=== PATIENT | female | born 1985 | race Caucasian/White ===

== ENCOUNTER → 2020-12-15 | Outpatient (CLI) ==
[~2020-12-15] MED LIST: ADV100INH INH; EFFE150C2 PO; EMGA120I IM; FAMO40TA3 PO; HYDR100C PO; LAMO100T3 PO; LAMO200T3 PO; LEVOTAB10 PO; METF-839 PO; MONT10TA10 PO; NEUR300C PO; PRAZ1CAP PO; PROAAER10 INH; QUET200T2 PO; SERO400T PO; TOPI25CA3 PO; TOPI50TA9 PO; ZOLP5TAB PO
== END ==
LOC: M LABSMTC 09:02 → EDUNIT# 09:35
PROVIDERS: ATTEND Anesthesiology
DX: Z01.812 Encounter for preprocedural laboratory examination (principal); Z20.822 Contact with and (suspected) exposure to COVID-19

== ENCOUNTER 2020-12-19 06:54 | Day surgery (SDC) | payer OTHER ==
[~2020-12-19] VITALS: Ht 167.6 cm; Wt 108.9 kg
[2020-12-19] MEDS ORDERED: MIDAZOLAM INJ 2MG/2ML VIAL (J2250 PER 1MG) As Ordered ONE (07:57)
[2020-12-19] MEDS ORDERED: fentaNYL 100 MCG/2 ML INJECTION (J3010) As Ordered ONE (07:58)
[2020-12-19] MEDS ORDERED: LIDOCAINE W/EPINEPHRINE 1% 20ML VIAL As Ordered ONE (08:20)
[2020-12-19] MEDS ORDERED: ROCURONIUM BROMIDE 50 MG/5 ML VIAL As Ordered ONE (08:21)
[2020-12-19] MEDS ORDERED: propofoL 200 MG/20 ML VIAL As Ordered ONE (08:21)
[2020-12-19] MEDS ORDERED: LIDOCAINE 2% 100MG/5ML SDV (FOR ANES.) As Ordered ONE (08:21)
[2020-12-19] MEDS ORDERED: BUPIVACAINE HCL 0.25% 30ML VIAL As Ordered ONE (08:49)
[2020-12-19] MEDS ORDERED: ONDANSETRON 4MG/2ML VIAL As Ordered ONE (08:51)
[2020-12-19] MEDS ORDERED: METOCLOPRAMIDE INJ 10MG/2ML VIAL (J2765 PER 1) As Ordered ONE (08:51)
[2020-12-19] MEDS ORDERED: SUGAMMADEX SODIUM 500 MG/5 ML VIAL (BRIDION) As Ordered ONE (08:54)
[2020-12-19] MEDS ORDERED: dexameTHASONE 4 MG/ML 1ML VIAL (J1100 PER 1MG) As Ordered ONE (08:55)
[2020-12-19] MEDS ORDERED: LR 1,000 ML IV SCH ×2 (09:30→09:35)
[2020-12-19] MEDS ORDERED: KETOROLAC 30 MG/ML 1ML VIAL IV PRN (09:30)
[2020-12-19] MEDS ORDERED: ONDANSETRON 4MG/2ML VIAL IV PRN (09:30)
[2020-12-19 14:00] VITALS: BP 139/86
--- NOTE | 2020-12-23 09:28 | RO ---
OPERATIVE NOTE DATE OF OPERATION: 12/19/2020 PREOPERATIVE DIAGNOSIS: Nonrestorable teeth. POSTOPERATIVE DIAGNOSIS: Nonrestorable teeth. PROCEDURE PERFORMED: Extraction of teeth #6, 11, 13, 14, 15, and 20. SURGEON: Prince oHod DMD. GANG SAW OPERATOR: ANESTHESIA: General. ESTIMATED BLOOD LOSS: 5 Ml. COMPLICATIONS: None. SPECIMEN: Teeth. DESCRIPTION OF PROCEDURE: The rest of the dictation will be completed in [facility].
== END 2020-12-19 14:13 | disposition home or self-care (01) ==
LOC: M SDC 06:54
PROVIDERS: ATTEND Dentist Oral and Maxillofacial Surgery
DX: K02.9 Dental caries, unspecified (principal); G43.909 Migraine, unspecified, not intractable, without status migrainosus; K21.9 Gastro-esophageal reflux disease without esophagitis; J45.909 Unspecified asthma, uncomplicated; F43.10 Post-traumatic stress disorder, unspecified; F31.9 Bipolar disorder, unspecified; F41.9 Anxiety disorder, unspecified; F32.9 Major depressive disorder, single episode, unspecified; G47.33 Obstructive sleep apnea (adult) (pediatric); Z79.84 Long term (current) use of oral hypoglycemic drugs; Z79.899 Other long term (current) drug therapy; Z87.891 Personal history of nicotine dependence; Z91.012 Allergy to eggs; Z88.2 Allergy status to sulfonamides; E73.9 Lactose intolerance, unspecified
CPT/HCPCS: 88300; D7210; D9223; J1100; J1885; J2250; J2405; J2765; J3010

== ENCOUNTER 2022-10-29 10:16 | Day surgery (SDC) | payer OTHER ==
[~2022-10-29] VITALS: Ht 167.6 cm; Wt 113.4 kg
[~2022-10-29 10:16] MED LIST changes: +ALBU6.7H6 INH; +ALPR0.25 PO; +DIVA250T67 PO; +FLUT50SP17; +GABA600T4 PO; +HYDR-4571 PO; +LAMO150T3 PO; -MONT10TA10 PO; +MONT10TA97 PO; +NALO4SPR; +OLAN1TAB16 PO; +PRAZ5CAP PO; +TOPI-254 PO; +TOPI100T9 PO; -TOPI25CA3 PO; +TOPI25CA5 PO; -TOPI50TA9 PO; +VENL37.598 PO; +ZOLP10TA2 PO
[2022-10-29] MEDS ORDERED: LIDOCAINE W/EPINEPHRINE 1% 20ML VIAL As Ordered ONE (13:11)
[2022-10-29] MEDS ORDERED: SUGAMMADEX SODIUM 500 MG/5 ML VIAL (BRIDION) As Ordered ONE ×2 (14:08→15:47)
[2022-10-29] MEDS ORDERED: ACETAMINOPHEN 1000MG 100ML IV BAG As Ordered ONE ×2 (14:08→15:32)
[2022-10-29] MEDS ORDERED: KETOROLAC 60MG 2ML VIAL As Ordered ONE (14:08)
[2022-10-29] MEDS ORDERED: propofoL 200 MG/20 ML VIAL As Ordered ONE (14:08)
[2022-10-29] MEDS ORDERED: ONDANSETRON 4MG 2ML VIAL As Ordered ONE (14:08)
[2022-10-29] MEDS ORDERED: LIDOCAINE 2% 100MG/5ML SDV (FOR ANES.) As Ordered ONE (14:08)
[2022-10-29] MEDS ORDERED: ROCURONIUM BROMIDE 50MG/5ML VIAL As Ordered ONE (14:08)
[2022-10-29] MEDS ORDERED: fentaNYL 100 MCG/2 ML INJECTION As Ordered ONE (14:09)
[2022-10-29] MEDS ORDERED: MIDAZOLAM INJ 2MG/2ML VIAL As Ordered ONE (14:10)
[2022-10-29] MEDS ORDERED: SCOPOLAMINE 1MG TRANSDERMAL PATCH TOP ONE (14:25)
[2022-10-29] MEDS ORDERED: ONDANSETRON 4MG 2ML VIAL IV PRN (16:00)
[2022-10-29] MEDS ORDERED: fentaNYL 100 MCG/2 ML INJECTION IV PRN (16:00)
[2022-10-29] MEDS: oxyCODONE 5MG TAB PO PRN ×2 (16:35→17:19)
[2022-10-29] MEDS: MORPHINE 2 MG/ML 1ML VIAL IV PRN ×4 (16:36→17:30)
[2022-10-29] MEDS: HYDROMORPHONE HCL 0.5 MG/ 0.5 ML SYRINGE IV PRN ×3 (17:47→18:26)
[2022-10-29 19:45] VITALS: BP 102/65; TEMP 96.8; O2SAT 96
== END 2022-10-29 20:10 | disposition home or self-care (01) ==
LOC: M SDC 10:16
PROVIDERS: ATTEND Dentist Oral and Maxillofacial Surgery
DX: K02.9 Dental caries, unspecified (principal); Z88.2 Allergy status to sulfonamides; Z88.8 Allergy status to other drugs, medicaments and biological substances; E73.9 Lactose intolerance, unspecified; Z88.0 Allergy status to penicillin; Z91.012 Allergy to eggs
CPT/HCPCS: 88300; D7210; D9223; J0131; J1100; J1170; J1885; J2250; J2405; J3010